=== PATIENT | male | born 1935 | race Caucasian/White ===

== ENCOUNTER → 2016-11-25 14:38 | Outpatient (CLI) | payer MEDICARE, OTHER ==
[2013-03-22 09:12] VITALS: BMI 24.1
[~2016-11-25 14:38] MED LIST: ASPIRIN81 MG PO; CRESTOR20 MG PO; GLUCOPHAGE1000 MG PO; KLOR-CON 1010 MEQ PO; LANTUS INSULIN10 ML SQ; LASIX20 MG PO; NORCO 10/325 TA1 TA1 PO; NORCO 7.5-3251 EACH PO; NORVASC10 MG PO; PLAVIX75 MG PO; ZANTAC150 MG PO
== END | disposition home or self-care (01) ==
LOC: D.US 14:30
DX: N45.1 Epididymitis (principal)

== ENCOUNTER 2018-04-08 21:34 | Observation (INO) | payer MEDICARE, OTHER ==
[~2018-04-08] VITALS: Ht 180.3 cm; Wt 84.1 kg
[2018-04-08] MEDS ORDERED: NAMENDA5 MG PO (21:46)
[2018-04-08 22:11] LABS: BASOPHILS 1.6 % (0-2); EOSINOPHILS 4.9 % (0-7); HEMATOCRIT 36.6 % (42.0-54.0); HEMOGLOBIN 12.7 g/dL (13.5-17.5); IMMATURE GRANULOCYTES 0.3 % (0-5); LYMPHOCYTES 36.1 % (15-50); MCH 29.8 pg (26.0-34.0); MCHC 34.7 g/dL (31.0-37.0); MCV 85.9 fL (80.0-100.0); MEAN PLATELET VOLUME 10.5 fL (7.4-10.4); NEUTROPHILS 49.1 % (40-80); PLATELET COUNT 168 10x3/uL (130-400); RBC 4.26 10x6/uL (4.20-6.10); RDW 13.2 % (11.5-14.5); WBC 7.6 10x3/uL (4.8-10.8)
[2018-04-08 22:27] LABS: ALBUMIN 3.4 g/dL (3.4-5.0); ANION GAP 13.7 mmol/L (8-16); BILIRUBIN - TOTAL 0.33 mg/dL (0.2-1.3); CALCIUM 8.9 mg/dL (8.5-10.1); CARBON DIOXIDE 26.8 mmol/L (21.0-32.0); POTASSIUM - SERUM 4.5 mmol/L (3.5-5.1); PROTEIN - SERUM 7.2 g/dL (6.4-8.2)
[2018-04-08 23:51] VITALS: BP 150/60
[2018-04-09] MEDS ORDERED: TRADJENTA5 MG PO (01:17)
[2018-04-09 01:48] VITALS: BP 156/72; BMI 25.8
[2018-04-09 04:00] VITALS: BP 149/57
[2018-04-09 08:24] VITALS: BP 160/61
[2018-04-09 13:46] VITALS: BP 128/60
[2018-04-09 15:14] VITALS: Ht 180.3 cm; Wt 84.1 kg
== END 2018-04-09 16:30 | disposition home or self-care (01) ==
LOC: D.ER 21:34 → OBSVTIME 23:29 → D.MS 23:29
PROVIDERS: Emergency Medicine
DX: T38.3X1A Poisoning by insulin and oral hypoglycemic [antidiabetic] drugs, accidental (unintentional), initial encounter (principal); I10 Essential (primary) hypertension; G30.9 Alzheimer's disease, unspecified; F02.80 Dementia in other diseases classified elsewhere, unspecified severity, without behavioral disturbance, psychotic disturbance, mood disturbance, and anxiety; E11.9 Type 2 diabetes mellitus without complications

== ENCOUNTER → 2020-01-04 13:08 | Outpatient (CLI) | payer MEDICARE, OTHER ==
[2018-04-09 15:14] VITALS: BMI 25.8
[~2020-01-04 13:08] MED LIST changes: +NAMENDA5 MG PO; +TRADJENTA5 MG PO
== END | disposition home or self-care (01) ==
LOC: D.CT 13:08
PROVIDERS: ATTEND Nurse Practitioner Family
DX: G83.20 Monoplegia of upper limb affecting unspecified side (principal)

== ENCOUNTER → 2020-01-24 08:30 | Outpatient (CLI) | payer MEDICARE, OTHER ==
[2018-04-09 15:14] VITALS: BMI 25.8
== END | disposition home or self-care (01) ==
LOC: D.ECHO 08:30 → D.MRI 10:00
PROVIDERS: ATTEND Psychiatry & Neurology Neurology
DX: I63.311 Cerebral infarction due to thrombosis of right middle cerebral artery (principal)

== ENCOUNTER 2020-12-02 11:43 | Inpatient (IN) | payer MEDICARE, OTHER ==
[2020-12-02] VITALS (7 sets, daily range): BP systolic 164–192; BP diastolic 65–77; BMI 24.4
[~2020-12-02] VITALS: Ht 175.3 cm; Wt 74.8 kg
[~2020-12-02 11:43] MED LIST changes: +BUSPAR5 MG PO; +CELEXA20 MG PO; +COZAAR25 MG PO; +CRESTOR5 MG PO; +DONEPEZIL HCL10 MG PO; +ELIQUIS5 MG PO; +HYDRALAZINE HCL25 MG PO; +INSULIN ASPART
[2020-12-02] MEDS ORDERED: FLOMAX0.4 MG PO (11:54)
[2020-12-02 12:02] LABS: BILIRUBIN NEGATIVE (NEGATIVE); KETONE NEGATIVE (NEGATIVE); NITRITE NEGATIVE (NEGATIVE); UROBILINOGEN NORMAL mg/dL (< 2)
[2020-12-02 12:06] LABS: SQUAMOUS EPITHELIAL 0-5 HPF (0-4); WHITE CELLS - URINE 0-5 HPF (0-1)
[2020-12-02 12:07] LABS: BACTERIA FEW HPF (NONE SEEN)
--- NOTE | 2020-12-02 13:15 | NUR ---
RESTING IN BED WITH EYES CLSOED. AROUSES EASILY WITH VERBAL OR TACTILE STIMULI. S/O AT BS
[2020-12-02 13:25] LABS: BASOPHILS 1.3 % (0-2); EOSINOPHILS 2.9 % (0-7); HEMATOCRIT 31.1 % (42.0-54.0); HEMOGLOBIN 10.4 g/dL (13.5-17.5); IMMATURE GRANULOCYTES 0.3 % (0-5); LYMPHOCYTE ABS# 1.95 10x3/uL (1.32-3.57); LYMPHOCYTES 18.7 % (15-50); MCH 28.3 pg (26.0-34.0); MCHC 33.4 g/dL (31.0-37.0); MCV 84.5 fL (80.0-100.0); MONOCYTES 5.8 % (2-11); PLATELET COUNT 162 10x3/uL (130-400); RBC 3.68 10x6/uL (4.20-6.10); RDW 15.1 % (11.5-14.5); WBC 10.4 10x3/uL (4.8-10.8)
--- NOTE | 2020-12-02 13:25 | NUR ---
DR MCLEAN NOTIFIED OF ELEVATED BP. NEW MED ORDERED/ADMIN
[2020-12-02 13:33] LABS: CALC OSMOLALITY 286 mosm/kg (275-300); CALCIUM 8.5 mg/dL (8.5-10.1); CARBON DIOXIDE 22.1 mmol/L (21.0-32.0); CHLORIDE - SERUM 107 mmol/L (98-107); CREATININE - SERUM 2.7 mg/dL (0.6-1.3); GLUCOSE 99 mg/dL (74-106); INR 1.24 (0.85-1.17); POTASSIUM - SERUM 4.7 mmol/L (3.5-5.1); PROTIME 14.4 SECONDS (11.6-15.0); SODIUM 139 mmol/L (136-145); UREA NITROGEN 38 mg/dL (7-18); eGFR NON AFRICAN AMERICAN 24 mL/min (90-120)
[2020-12-02 13:50] LABS: ALBUMIN 2.6 g/dL (3.4-5.0); ALKALINE PHOSPHATASE 65 U/L (30-120); ALT (SGPT) 22 U/L (10-68); CKMB 1.6 U/L (0.0-3.6); CREATINE KINASE 86 UL (21-232); PROTEIN - SERUM 6.4 g/dL (6.4-8.2)
--- NOTE | 2020-12-02 16:05 | NUR ---
REPORT TO DEEPIKA KEENE
[2020-12-02 16:10] LABS: % SATURATION 20 % (15-55); IRON 45 ug/dl (35-150); TOTAL IRON BIND CAPACITY 224 ug/dl (260-445); UNSAT IRON BIND CAPACITY 179 ug/dl (150-375)
[2020-12-02 16:19] LABS: MAGNESIUM - SERUM 2.1 mg/dL (1.8-2.4)
--- NOTE | 2020-12-02 16:43 | NUR ---
SCDs APPLIED TO BILATERAL EXTREMITIES. NO DISTRESS.
--- NOTE | 2020-12-02 16:45 | NUR ---
ASSISTED PATIENT OOB TO RESTROOM AND BACK. PATIENT HAD LARGE BM. NOW SITTING IN BED CONSUMING PM MEAL. NO DISTRESS. BED ALARM PATENT.
--- NOTE | 2020-12-02 17:06 | NUR ---
FSBS 158. 2 UNITS HUMULIN INSULIN ADMINISTERED PER SLIDING SCALE.
--- NOTE | 2020-12-02 18:06 | NUR ---
CAN ONLY INFUSE ONE ABX AT A TIME, THE TIMING NEEDS TO BE ADJUSTED ON THESE ANTIBIOTICS, PHARMACY CLOSED AND UNABLE TO PLACE A MANUAL REQUEST. ZITHROMAX INFUSING AT THIS TIME.
--- NOTE | 2020-12-02 18:11 | NUR ---
PATIENT CONFUSED, HE HAS PULLED IV OUT OF LEFT AC. NO BLEEDING FROM SITE. WILL ATTEMPT AT PLACING ANOTHER IV. NO FAMILY AT BEDSIDE.
--- NOTE | 2020-12-02 18:12 | NUR ---
20 GAUGE IV CATHETER PULLED FROM LEFT AC AREA BY PATIENT. CATHETER TIP INTACT. NO BLEEDING FROM SITE. 2X2 GAUZE APPLIED AND SECURED WITH BANDAID.
--- NOTE | 2020-12-02 18:36 | NUR ---
20 GAUGE IV PLACED TO LOWER LEFT AC AREA X 1 STICK, GOOD BLOOD RETURN, EASY FLUSH. TAPED, DATED AND SECURED. PATIENT TRYING TO PULL THIS IV OUT i AM FINISHING PLACING TAPE TO SECURE IV. PATIENT NEEDS FREQUENT QUES AND REMINDERS TO NOT PULL IV OUT. PATIENT HAS DEMENTIA. LOOSE COBAN WRAP APPLIED OVER IV SITE TO DEFFER PATIENT FROM PULLING IV SITE OUT. IV ABX INFUSING AT THIS TIME.
--- NOTE | 2020-12-02 19:45 | NUR ---
SPOKE WITH , PASSCODE PROVIDED, UPDATE GIVEN.
[2020-12-03 04:00] VITALS: BP 183/78
[2020-12-03 06:06] LABS: BASOPHILS 1.2 % (0-2); EOSINOPHILS 2.3 % (0-7); HEMATOCRIT 32.1 % (42.0-54.0); HEMOGLOBIN 10.6 g/dL (13.5-17.5); IMMATURE GRANULOCYTES 0.3 % (0-5); LYMPHOCYTE ABS# 1.55 10x3/uL (1.32-3.57); LYMPHOCYTES 16.5 % (15-50); MCH 28.1 pg (26.0-34.0); MCV 85.1 fL (80.0-100.0); MEAN PLATELET VOLUME 10.3 fL (7.4-10.4); MONOCYTES 7.6 % (2-11); NEUTROPHIL ABS# 6.79 10x3/uL (1.78-5.38); NEUTROPHILS 72.1 % (40-80); PLATELET COUNT 178 10x3/uL (130-400); RBC 3.77 10x6/uL (4.20-6.10); RDW 15.3 % (11.5-14.5); WBC 9.4 10x3/uL (4.8-10.8)
[2020-12-03 06:27] LABS: ALBUMIN 2.6 g/dL (3.4-5.0); ANION GAP 14.8 mmol/L (8-16); BILIRUBIN - TOTAL 0.4 mg/dL (0.2-1.3); CALCIUM 8.5 mg/dL (8.5-10.1); CARBON DIOXIDE 23.3 mmol/L (21.0-32.0); CREATININE - SERUM 2.6 mg/dL (0.6-1.3); MAGNESIUM - SERUM 1.9 mg/dL (1.8-2.4); POTASSIUM - SERUM 4.1 mmol/L (3.5-5.1); PROTEIN - SERUM 6.4 g/dL (6.4-8.2)
--- NOTE | 2020-12-03 07:20 | NUR ---
RECIEVE REPORT. ALERT AND ORIENTED TO SELF. WATCHING TV. CONTROLLED AFIB ON TELEMETRY. DENIES ANY NEEDS. CONTINUE PLAN OF CARE AND SAFETY PRECAUTIONS.
[2020-12-03 08:25] VITALS: BP 169/64
[2020-12-03 12:22] VITALS: Ht 175.3 cm; Wt 74.8 kg
[2020-12-03 12:46] VITALS: BP 134/65
[2020-12-03 17:01] VITALS: BP 127/74
[2020-12-03 20:00] VITALS: BP 173/68
--- NOTE | 2020-12-03 20:20 | NUR ---
REPORT RECEIVED, PT LYING IN BED WATCHING TV. NO S/S OF DISTRESS OBSERVED. RR EVEN & UNLABORED ON RA. IV TO L FA PATENT WITH NS AT 75 CC/HR INFUSING. SR 76 ON TELE. BED LOCKED AND LOWERED, CL IN REACH. ASSESSMENT COMPLETE. WILL CONT POC.
[2020-12-04] VITALS: BP 170/80
[2020-12-04 04:00] VITALS: BP 152/80
--- NOTE | 2020-12-04 07:20 | NUR ---
RECIEVE REPORT. RESTING IN BED WITH EYES CLOSED. NO SIGNS OF DISTRESS. CONTROLLED AFIB ON TELEMETRY. CONTINUE PLAN OF CARE AND SAFETY PRECAUTIONS.
[2020-12-04 08:34] VITALS: BP 179/74
[2020-12-04 09:03] LABS: BASOPHILS 0.9 % (0-2); EOSINOPHILS 2.5 % (0-7); HEMATOCRIT 32.3 % (42.0-54.0); HEMOGLOBIN 10.9 g/dL (13.5-17.5); IMMATURE GRANULOCYTES 0.3 % (0-5); LYMPHOCYTE ABS# 1.77 10x3/uL (1.32-3.57); LYMPHOCYTES 14.8 % (15-50); MCH 28.5 pg (26.0-34.0); MCHC 33.7 g/dL (31.0-37.0); MCV 84.6 fL (80.0-100.0); MEAN PLATELET VOLUME 10.1 fL (7.4-10.4); MONOCYTES 5.1 % (2-11); NEUTROPHILS 76.4 % (40-80); PLATELET COUNT 177 10x3/uL (130-400); RBC 3.82 10x6/uL (4.20-6.10); RDW 15.1 % (11.5-14.5)
[2020-12-04 09:09] LABS: WBC 11.9 10x3/uL (4.8-10.8)
[2020-12-04 09:26] LABS: ALBUMIN 2.7 g/dL (3.4-5.0); ANION GAP 15.4 mmol/L (8-16); BILIRUBIN - TOTAL 0.42 mg/dL (0.2-1.3); CALCIUM 8.3 mg/dL (8.5-10.1); CARBON DIOXIDE 21.7 mmol/L (21.0-32.0); CREATININE - SERUM 2.9 mg/dL (0.6-1.3); MAGNESIUM - SERUM 1.7 mg/dL (1.8-2.4); POTASSIUM - SERUM 4.1 mmol/L (3.5-5.1); PROTEIN - SERUM 6.2 g/dL (6.4-8.2)
[2020-12-04 12:57] VITALS: BP 184/83
[2020-12-04 15:47] VITALS: BP 168/70
--- NOTE | 2020-12-04 21:55 | NUR ---
REPORT RECEIVED. PT A&O, RESTING IN BED. NO S/S OF DISTRESS OBSERVED. RR EVEN & UNLABORED ON RA. IV TO L SHOULDER INFUSING NS AT 75 CC/HR. SR 73 ON TELE. BED LOCKED AND LOWERED, CL IN REACH. ASSESSMENT COMPLETE. WILL CONT POC.
[2020-12-04 23:13] VITALS: BP 135/77
[2020-12-05 03:05] VITALS: BP 172/71
[2020-12-05 05:57] VITALS: BP 167/59
[2020-12-05 07:00] LABS: BASOPHILS 1.4 % (0-2); EOSINOPHILS 4.2 % (0-7); HEMATOCRIT 30.5 % (42.0-54.0); IMMATURE GRANULOCYTES 0.3 % (0-5); LYMPHOCYTES 17.5 % (15-50); MCHC 32.8 g/dL (31.0-37.0); MCV 85.4 fL (80.0-100.0); MEAN PLATELET VOLUME 10.5 fL (7.4-10.4); MONOCYTES 6.8 % (2-11); NEUTROPHIL ABS# 6.36 10x3/uL (1.78-5.38); NEUTROPHILS 69.8 % (40-80); PLATELET COUNT 183 10x3/uL (130-400); RBC 3.57 10x6/uL (4.20-6.10); RDW 15.1 % (11.5-14.5); WBC 9.1 10x3/uL (4.8-10.8)
[2020-12-05 07:19] LABS: ALBUMIN 2.5 g/dL (3.4-5.0); ANION GAP 15.7 mmol/L (8-16); BILIRUBIN - TOTAL 0.42 mg/dL (0.2-1.3); CALCIUM 8.4 mg/dL (8.5-10.1); CARBON DIOXIDE 21.3 mmol/L (21.0-32.0); CREATININE - SERUM 2.8 mg/dL (0.6-1.3); MAGNESIUM - SERUM 1.8 mg/dL (1.8-2.4); PROTEIN - SERUM 6.3 g/dL (6.4-8.2)
--- NOTE | 2020-12-05 07:38 | NUR ---
REPORT RECEIVED. PATIENT IS LYING IN BED RESTING WITH EYES CLOSED. NO S/S OF DISTRESS OBSERVED. RR EVEN AND UNLABORED ON ROOM AIR. PIV TO LT SHOULDER, PATENT, INFUSING NS @ 75ML/HR. F/C PATENT, DRAINING YELLOW URINE BY GRAVITY TO LT SIDE OF BED. NO NEEDS EXPRESSED AT THIS TIME. CL IN REACH, BED LOCKED AND LOWERED, ZEKE ALARM ON. WILL CPOC.
[2020-12-05 08:06] VITALS: BP 168/80
[2020-12-05 12:07] VITALS: BP 168/69
--- NOTE | 2020-12-05 12:18 | NUR ---
SON AT BEDSIDE ASSISTING PATIENT WITH EATING LUNCH. NO NEEDS EXPRESSED AT THIS TIME. CL IN REACH, BED LOCKED AND LOWERED. WILL CPOC.
--- NOTE | 2020-12-05 12:24 | MORECARE ---
CASE MANAGEMENT DISCHARGE SUMMARY PATIENT: KATE BAHENA UNIT: [id number] ADM DATE: 12/02/20 AGE: 84 : 36 SEX: M ROOM/BED: D.[facility] [place] AUTHOR: EDITH HOPE PHYSICIAN: REFERRING PHYSICIAN: SNEHA PERSAUD MD DATE OF SERVICE: 12/05/20 Case Management Discharge Planning Summary DCP REVIEW SUMMARY ANTICIPATED D/C DATE: EXPECTED LOS : CASE STATUS: DCP Initiated INITIAL REVIEW: 12/05/2020 INITIAL REVIEWER: Caryl Ledesma FINAL DISCHARGE DISPOSITION: : FINAL REVIEWER: FINAL REVIEW DATE: DCP Focus Questions & Answers DCP Screen QUESTION: ANSWER High Risk Factors: : Polypharmacy (greater than 10 meds) DCP Evaluation QUESTION: ANSWER Patient's ability to cope with chronic illness : d. No chronic illness Would patient like to participate in any Care Coordination programs (if applicable): : Not applicable Mental health screen: : No mental health history DCP Re-evaluation QUESTION: ANSWER Would patient like to participate in any Care Coordination programs (if applicable): : Not applicable PATIENT: KATE BAHENA ENCOUNTER: [id number] MEDICAL RECORD#: [id number] ADMISSION DATE: 12/02/2020 DISCHARGE DATE: ATTENDING MD: CORI PERSAUD : AGE: 84 MARITAL STATUS: M DC PLAN ID: [id number] FACILITY: [facility] PRINTED ON: 12/05/20 12:24 CT All edits/amendments must be made on the electronic document DICTATION DATE: 12/05/201223 FASHION SUPERVISOR: DM 12/05/20 1224 RPT#: [id number] DC DATE: STATUS: ADM IN [facility] [address] [place] [address] END OF REPORT
--- NOTE | 2020-12-05 12:47 | MORECARE ---
CASE MANAGEMENT DISCHARGE SUMMARY PATIENT: KATE BAHENA UNIT: [id number] ADM DATE: 12/02/20 AGE: 84 : 36 SEX: M ROOM/BED: D.2115 AUTHOR: JAYYDOC PHYSICIAN: REFERRING PHYSICIAN: SNEHA PERSAUD MD DATE OF SERVICE: 12/05/20 Case Management Discharge Planning Summary COMMENTS ENTERED DATE: 12/05/20 12:36 CT COMMENT TYPE: Discharge Planning REVIEWER: Caryl Ledesma CM met with patient and son, Faye, is in the room. Patient lives with his and oldest son, Jeff. His PCP is Dr. Smiley. I have also called patient's per patient and son's recommendation to continue discharge planning. His spouse states, if able, she would like her spouse to come home with [facility] (current) home health. She and son agree that it would be best for the patient. States he needs assistance with ambulation, uses a walker, bathing, dressing and medication management. States they have house calls monthly to change catheter. States they also have [facility] home health for nursing and PT. I did discuss rehab and additional DME, but would like to decline at this time and come home with home health. I have notified Yesy in inpatient rehab of the plan. CM will continue to follow and assist with discharge planning/needs. DCP REVIEW SUMMARY ANTICIPATED D/C DATE: EXPECTED LOS : CASE STATUS: DCP Initiated INITIAL REVIEW: 12/05/2020 INITIAL REVIEWER: Caryl Ledesma FINAL DISCHARGE DISPOSITION: : FINAL REVIEWER: FINAL REVIEW DATE: DCP Focus Questions & Answers DCP Screen QUESTION: ANSWER High Risk Factors: : Polypharmacy (greater than 10 meds) DCP Evaluation QUESTION: ANSWER Patient's ability to cope with chronic illness : a. Adequate (0-3 ED visits in 6 mos., adequate financial resources, attends scheduled appts.) Patient gives permission to discuss discharge plans with: (name, relationship and number) : Faye Bahena - [phone] Moni - spouse - [phone] Patient's current cognitive status: : Alert Family / Caregiver's ability to cope with chronic illness: : a. Adequate (ability to meet patient's medical needs, ensures patient attends medical appts.) Patient and/or caregiver agree upon recommended discharge plan? : Yes Physical Status: : Indwelling urinary catheter Physical Status: : Mobility impaired Physical Status: : Partial care dependence Family / Caregiver's ability to cope with chronic illness: : a. Adequate (ability to meet patient's medical needs, ensures patient attends medical appts.) Functional screen assessment: : Unable to manage ADLs without immediate ongoing assistance Does the patient have the ability to pay for or attain post discharge needs / services? : Yes Partial Dependence, assistance required for: : Ambulation / Mobility Partial Dependence, assistance required for: : Bathing Partial Dependence, assistance required for: : Dressing Partial Dependence, assistance required for: : Eating Living Arrangements: : Home with Spouse/Significant Other Is there a likelihood that the patient will require additional services to return to the preadmission environment? : No Equipment needed for post hospitalization: : None Baseline cognitive status: : Alert Baseline cognitive status: : Intermittently confused / memory changes Living arrangements comments: : Lives with spouse and oldest sonJeff Patient with capacity for self-care or can be cared for in same environment as prior to hospitalization? : Yes Results of this evaluation have been discussed with: : Family Results of this evaluation have been discussed with: : Patient Results of this evaluation have been discussed with: : Spouse Preadmission facility can/cannot provide post hospital level of care needs: : Can - at same level of care as preadmission Physical environment modification needed / anticipated for discharge: : No Medication Management: : Patient states the need for assistance with medication administration Medication Management: : Patient states can afford medications Pharmacy name(s): : [facility] [address] Does Patient have transportation to get home and to follow-up medical appointments when discharged from the hospital? : Yes Would patient like to participate in any Care Coordination programs (if applicable): : Not applicable Does the patient have electricity at home? : Yes Does the patient have running water in their house? : Yes Equipment in use: : Cane - Single Leg Equipment in use: : Glucometer Equipment in use: : Shower Chair Equipment in use: : Walker - Rollator Equipment in use: : Walker - Rolling Mental health screen: : Receiving treatment, not under the care of a mental health provider Psychosocial status: : Adult with physical limitations Abuse/Neglect: : None Resources / Services in place: : Home health Contact information for resources in use: : [facility] DCP Re-evaluation QUESTION: ANSWER Would patient like to participate in any Care Coordination programs (if applicable): : Not applicable PATIENT: KATE BAHENA ENCOUNTER: [id number] MEDICAL RECORD#: [id number] ADMISSION DATE: 12/02/2020 DISCHARGE DATE: ATTENDING MD: CORI PERSAUD : AGE: 84 MARITAL STATUS: M DC PLAN ID: [id number] FACILITY: [facility] PRINTED ON: 12/05/20 12:47 CT All edits/amendments must be made on the electronic document DICTATION DATE: 12/05/201246 ELECTRIC SEALING MACHINE OPERATOR: ANASTASIA 12/05/20 124 RPT#: [id number] DC DATE: STATUS: ADM IN [facility] [address] [place] [address] END OF REPORT
--- NOTE | 2020-12-05 13:50 | NUR ---
Nutrition Follow-up: PO intake fluctuating. Needs feeding assistance. ST following. Diet: Cardiac, Carb Consistent, Mech Soft, no straws, feeding assistance PO intake: 55% avg x 3 meals (12/04) No new wt; last wt: 165# (12/03) Labs noted: BUN 41, Cre 2.8, GFR 23, Glu 113, Ca 8.4, Alb 2.5 Meds noted: Miralax, Florajen, Humulin, Pepcid, NS @ 75, electrolyte protocol -Encourage PO intake and honor food preferences within diet restrictions. -Offer Glucerna with meals. -Need new wt. -RD will follow up within 5 days.
[2020-12-05 15:52] VITALS: BP 170/75
--- NOTE | 2020-12-05 16:06 | NUR ---
RECEIVED CALL BACK FROM DR. GHOTRA, INSTRUCTED TO DECREASE CARDIZEM TO 5ML/HR.
--- NOTE | 2020-12-05 20:45 | NUR ---
REPORT RECEIVED. PT A&O, UP IN BED WATCHING TV. NO S/S OF DISTRESS OBSERVED. RR EVEN & UNLABORED ON RA. L SHOULDER IV INFUSING NS AT 75CC/HR. SR 73 ON TELE. BED LOCKED AND LOWERED, CL IN REACH. ASSESSMENT COMPLETE. WILL CONT POC.
[2020-12-05 21:36] VITALS: BP 179/81
[2020-12-06 01:37] VITALS: BP 171/73
[2020-12-06 05:53] VITALS: BP 165/80
[2020-12-06 06:25] LABS: BASOPHILS 0.8 % (0-2); EOSINOPHILS 3.3 % (0-7); HEMATOCRIT 28.8 % (42.0-54.0); HEMOGLOBIN 9.8 g/dL (13.5-17.5); IMMATURE GRANULOCYTES 0.4 % (0-5); LYMPHOCYTE ABS# 1.84 10x3/uL (1.32-3.57); LYMPHOCYTES 17.1 % (15-50); MCH 28.5 pg (26.0-34.0); MCV 83.7 fL (80.0-100.0); MEAN PLATELET VOLUME 10.9 fL (7.4-10.4); MONOCYTES 9.6 % (2-11); NEUTROPHIL ABS# 7.42 10x3/uL (1.78-5.38); NEUTROPHILS 68.8 % (40-80); PLATELET COUNT 195 10x3/uL (130-400); RBC 3.44 10x6/uL (4.20-6.10); WBC 10.8 10x3/uL (4.8-10.8)
[2020-12-06 06:43] LABS: ALBUMIN 2.4 g/dL (3.4-5.0); ANION GAP 17.8 mmol/L (8-16); BILIRUBIN - TOTAL 0.52 mg/dL (0.2-1.3); CALCIUM 8.1 mg/dL (8.5-10.1); CARBON DIOXIDE 19.2 mmol/L (21.0-32.0); CREATININE - SERUM 2.8 mg/dL (0.6-1.3); MAGNESIUM - SERUM 1.7 mg/dL (1.8-2.4); PROTEIN - SERUM 5.7 g/dL (6.4-8.2)
[2020-12-06 08:00] VITALS: BP 196/82
[2020-12-06] MEDS ORDERED: MIRALAX17 GM PO (11:08)
[2020-12-06] MEDS ORDERED: FLORAJEN DIGES1 EACH PO (11:08)
[2020-12-06] MEDS ORDERED: VIBRAMYCIN 100100 MG PO (11:09)
[2020-12-06] MEDS ORDERED: AZITHROMYCIN500 MG PO (11:10)
--- NOTE | 2020-12-06 12:48 | MORECARE ---
CASE MANAGEMENT DISCHARGE SUMMARY PATIENT: KATE BAHENA UNIT: [id number] ADM DATE: 12/02/20 AGE: 84 : 36 SEX: M ROOM/BED: D.8325 AUTHOR: JAYY,EDITH PHYSICIAN: REFERRING PHYSICIAN: SNEHA PERSAUD MD DATE OF SERVICE: 12/06/20 Case Management Discharge Planning Summary COMMENTS ENTERED DATE: 12/06/20 12:36 CT COMMENT TYPE: Discharge Planning REVIEWER: Caryl Ledesma DC order received. I called [facility] and spoke with Joann, they will resume his home health. Joann states they will call family prior to coming out. Home today with [employer], clinical faxed. ENTERED DATE: 12/05/20 12:36 CT COMMENT TYPE: Discharge Planning REVIEWER: Caryl Ledesma CM met with patient and son, Faye, is in the room. Patient lives with his and oldest son, Jeff. His PCP is Dr. Smiley. I have also called patient's per patient and son's recommendation to continue discharge planning. His spouse states, if able, she would like her spouse to come home with [facility] (current) home health. She and son agree that it would be best for the patient. States he needs assistance with ambulation, uses a walker, bathing, dressing and medication management. States they have house calls monthly to change catheter. States they also have [facility] for nursing and PT. I did discuss rehab and additional DME, but would like to decline at this time and come home with home health. I have notified Yesy in inpatient rehab of the plan. CM will continue to follow and assist with discharge planning/needs. DCP REVIEW SUMMARY ANTICIPATED D/C DATE: EXPECTED LOS : CASE STATUS: DCP Initiated INITIAL REVIEW: 12/05/2020 INITIAL REVIEWER: Caryl Ledesma FINAL DISCHARGE DISPOSITION: : FINAL REVIEWER: FINAL REVIEW DATE: DCP Focus Questions & Answers DCP Screen QUESTION: ANSWER High Risk Factors: : Polypharmacy (greater than 10 meds) DCP Evaluation QUESTION: ANSWER Patient and/or caregiver agree upon recommended discharge plan? : Yes Family / Caregiver's ability to cope with chronic illness: : a. Adequate (ability to meet patient's medical needs, ensures patient attends medical appts.) Patient's current cognitive status: : Alert Patient gives permission to discuss discharge plans with: (name, relationship and number) : Faye Bahena - [phone] Moni - spouse - [phone] Patient's ability to cope with chronic illness : a. Adequate (0-3 ED visits in 6 mos., adequate financial resources, attends scheduled appts.) Does the patient have the ability to pay for or attain post discharge needs / services? : Yes Functional screen assessment: : Unable to manage ADLs without immediate ongoing assistance Family / Caregiver's ability to cope with chronic illness: : a. Adequate (ability to meet patient's medical needs, ensures patient attends medical appts.) Physical Status: : Partial care dependence Physical Status: : Mobility impaired Physical Status: : Indwelling urinary catheter Equipment needed for post hospitalization: : None Is there a likelihood that the patient will require additional services to return to the preadmission environment? : No Living Arrangements: : Home with Spouse/Significant Other Partial Dependence, assistance required for: : Eating Partial Dependence, assistance required for: : Dressing Partial Dependence, assistance required for: : Bathing Partial Dependence, assistance required for: : Ambulation / Mobility Results of this evaluation have been discussed with: : Spouse Results of this evaluation have been discussed with: : Patient Results of this evaluation have been discussed with: : Family Patient with capacity for self-care or can be cared for in same environment as prior to hospitalization? : Yes Living arrangements comments: : Lives with spouse and oldest sonJeff Baseline cognitive status: : Intermittently confused / memory changes Baseline cognitive status: : Alert Physical environment modification needed / anticipated for discharge: : No Preadmission facility can/cannot provide post hospital level of care needs: : Can - at same level of care as preadmission Medication Management: : Patient states can afford medications Medication Management: : Patient states the need for assistance with medication administration Pharmacy name(s): : [facility] [address] Does Patient have transportation to get home and to follow-up medical appointments when discharged from the hospital? : Yes Would patient like to participate in any Care Coordination programs (if applicable): : Not applicable Does the patient have electricity at home? : Yes Does the patient have running water in their house? : Yes Equipment in use: : Walker - Rolling Equipment in use: : Walker - Rollator Equipment in use: : Shower Chair Equipment in use: : Glucometer Equipment in use: : Cane - Single Leg Mental health screen: : Receiving treatment, not under the care of a mental health provider Psychosocial status: : Adult with physical limitations Abuse/Neglect: : None Resources / Services in place: : Home health Contact information for resources in use: : [employer] DCP Re-evaluation QUESTION: ANSWER Would patient like to participate in any Care Coordination programs (if applicable): : Not applicable PATIENT: KATE BAHENA ENCOUNTER: [id number] MEDICAL RECORD#: [id number] ADMISSION DATE: 12/02/2020 DISCHARGE DATE: ATTENDING MD: CORI PERSAUD : AGE: 84 MARITAL STATUS: M DC PLAN ID: [id number] FACILITY: [facility] PRINTED ON: 12/06/20 12:48 CT All edits/amendments must be made on the electronic document DICTATION DATE: 12/06/201247 FISCAL MANAGER: ANASTASIA 12/06/20 1248 RPT#: [id number] DC DATE: STATUS: ADM IN [facility] [address] [place] [address] END OF REPORT
--- NOTE | 2020-12-06 16:01 | NUR ---
IV AND TELEMETRY DCD. DC PLANS GIVEN TO . UNDERSTANDING VOICED. ESCORTED TO CAR BY W/C.
--- NOTE | 2020-12-09 17:28 | MORECARE ---
CASE MANAGEMENT DISCHARGE SUMMARY PATIENT: KATE BAHENA UNIT: [id number] ADM DATE: 12/02/20 AGE: 84 : 36 SEX: M ROOM/BED: D.9945 AUTHOR: JAYY,EDITH PHYSICIAN: REFERRING PHYSICIAN: SNEHA PERSAUD MD DATE OF SERVICE: 12/09/20 Case Management Discharge Planning Summary COMMENTS ENTERED DATE: 12/06/20 12:36 CT COMMENT TYPE: Discharge Planning REVIEWER: Caryl Ledesma DC order received. I called [facility] and spoke with Joann, they will resume his home health. Joann states they will call family prior to coming out. Home today with [employer], clinical faxed. ENTERED DATE: 12/05/20 12:36 CT COMMENT TYPE: Discharge Planning REVIEWER: Caryl Ledesma CM met with patient and son, Faye, is in the room. Patient lives with his and oldest son, Jeff. His PCP is Dr. Smiley. I have also called patient's per patient and son's recommendation to continue discharge planning. His spouse states, if able, she would like her spouse to come home with [facility] (current) home health. She and son agree that it would be best for the patient. States he needs assistance with ambulation, uses a walker, bathing, dressing and medication management. States they have house calls monthly to change catheter. States they also have [facility] for nursing and PT. I did discuss rehab and additional DME, but would like to decline at this time and come home with home health. I have notified Yesy in inpatient rehab of the plan. CM will continue to follow and assist with discharge planning/needs. DCP REVIEW SUMMARY ANTICIPATED D/C DATE: EXPECTED LOS : CASE STATUS: DCP Initiated INITIAL REVIEW: 12/05/2020 INITIAL REVIEWER: Caryl Ledesma FINAL DISCHARGE DISPOSITION: : FINAL REVIEWER: FINAL REVIEW DATE: DCP Focus Questions & Answers DCP Screen QUESTION: ANSWER High Risk Factors: : Polypharmacy (greater than 10 meds) DCP Evaluation QUESTION: ANSWER Patient's ability to cope with chronic illness : a. Adequate (0-3 ED visits in 6 mos., adequate financial resources, attends scheduled appts.) Patient gives permission to discuss discharge plans with: (name, relationship and number) : Faye Bahena - [phone] Moni - spouse - [phone] Patient's current cognitive status: : Alert Family / Caregiver's ability to cope with chronic illness: : a. Adequate (ability to meet patient's medical needs, ensures patient attends medical appts.) Patient and/or caregiver agree upon recommended discharge plan? : Yes Physical Status: : Indwelling urinary catheter Physical Status: : Mobility impaired Physical Status: : Partial care dependence Family / Caregiver's ability to cope with chronic illness: : a. Adequate (ability to meet patient's medical needs, ensures patient attends medical appts.) Functional screen assessment: : Unable to manage ADLs without immediate ongoing assistance Does the patient have the ability to pay for or attain post discharge needs / services? : Yes Partial Dependence, assistance required for: : Ambulation / Mobility Partial Dependence, assistance required for: : Bathing Partial Dependence, assistance required for: : Dressing Partial Dependence, assistance required for: : Eating Living Arrangements: : Home with Spouse/Significant Other Is there a likelihood that the patient will require additional services to return to the preadmission environment? : No Equipment needed for post hospitalization: : None Baseline cognitive status: : Alert Baseline cognitive status: : Intermittently confused / memory changes Living arrangements comments: : Lives with spouse and oldest son, Jeff Patient with capacity for self-care or can be cared for in same environment as prior to hospitalization? : Yes Results of this evaluation have been discussed with: : Family Results of this evaluation have been discussed with: : Patient Results of this evaluation have been discussed with: : Spouse Preadmission facility can/cannot provide post hospital level of care needs: : Can - at same level of care as preadmission Physical environment modification needed / anticipated for discharge: : No Medication Management: : Patient states the need for assistance with medication administration Medication Management: : Patient states can afford medications Pharmacy name(s): : [facility] [address] Does Patient have transportation to get home and to follow-up medical appointments when discharged from the hospital? : Yes Would patient like to participate in any Care Coordination programs (if applicable): : Not applicable Does the patient have electricity at home? : Yes Does the patient have running water in their house? : Yes Equipment in use: : Cane - Single Leg Equipment in use: : Glucometer Equipment in use: : Shower Chair Equipment in use: : Walker - Rollator Equipment in use: : Walker - Rolling Mental health screen: : Receiving treatment, not under the care of a mental health provider Psychosocial status: : Adult with physical limitations Abuse/Neglect: : None Resources / Services in place: : Home health Contact information for resources in use: : [facility] DCP Re-evaluation QUESTION: ANSWER Would patient like to participate in any Care Coordination programs (if applicable): : Not applicable PATIENT: KATE BAHENA ENCOUNTER: [id number] MEDICAL RECORD#: [id number] ADMISSION DATE: 12/02/2020 DISCHARGE DATE: 12/06/2020 ATTENDING MD: CORI PERSAUD : AGE: 84 MARITAL STATUS: M DC PLAN ID: [id number] FACILITY: [facility] PRINTED ON: 12/09/20 17:28 CT All edits/amendments must be made on the electronic document DICTATION DATE: 12/09/201727 SPACE OPERATIONS OFFICER: ANASTASIA 12/09/201727 RPT#: [id number] DC DATE:12/06/20 STATUS: DIS IN [facility] [address] [place] [address] END OF REPORT
--- NOTE | 2020-12-10 11:02 | MORECARE ---
CASE MANAGEMENT DISCHARGE SUMMARY PATIENT: KATE BAHENA UNIT: [id number] ADM DATE: 12/02/20 AGE: 84 : 36 SEX: M ROOM/BED: D.8145 AUTHOR: JAYY,EDITH PHYSICIAN: REFERRING PHYSICIAN: SNEHA PERSAUD MD DATE OF SERVICE: 12/10/20 Case Management Discharge Planning Summary COMMENTS ENTERED DATE: 12/06/20 12:36 CT COMMENT TYPE: Discharge Planning REVIEWER: Caryl Ledesma DC order received. I called [facility] and spoke with Joann, they will resume his home health. Joann states they will call family prior to coming out. Home today with [facility], clinical faxed. ENTERED DATE: 12/05/20 12:36 CT COMMENT TYPE: Discharge Planning REVIEWER: Caryl Ledesma CM met with patient and son, Faye, is in the room. Patient lives with his and oldest son, Jeff. His PCP is Dr. Smiley. I have also called patient's per patient and son's recommendation to continue discharge planning. His spouse states, if able, she would like her spouse to come home with [facility] (current) home health. She and son agree that it would be best for the patient. States he needs assistance with ambulation, uses a walker, bathing, dressing and medication management. States they have house calls monthly to change catheter. States they also have [facility] for [facility] and PT. I did discuss rehab and additional DME, but would like to decline at this time and come home with home health. I have notified Yesy in inpatient rehab of the plan. CM will continue to follow and assist with discharge planning/needs. DCP REVIEW SUMMARY ANTICIPATED D/C DATE: EXPECTED LOS : CASE STATUS: DCP Initiated INITIAL REVIEW: 12/05/2020 INITIAL REVIEWER: Caryl Ledesma FINAL DISCHARGE DISPOSITION: : FINAL REVIEWER: FINAL REVIEW DATE: DCP Focus Questions & Answers DCP Screen QUESTION: ANSWER High Risk Factors: : Polypharmacy (greater than 10 meds) DCP Evaluation QUESTION: ANSWER Patient and/or caregiver agree upon recommended discharge plan? : Yes Family / Caregiver's ability to cope with chronic illness: : a. Adequate (ability to meet patient's medical needs, ensures patient attends medical appts.) Patient's current cognitive status: : Alert Patient gives permission to discuss discharge plans with: (name, relationship and number) : Faye Bahena - [phone] Moni - spouse - [phone] Patient's ability to cope with chronic illness : a. Adequate (0-3 ED visits in 6 mos., adequate financial resources, attends scheduled appts.) Does the patient have the ability to pay for or attain post discharge needs / services? : Yes Functional screen assessment: : Unable to manage ADLs without immediate ongoing assistance Family / Caregiver's ability to cope with chronic illness: : a. Adequate (ability to meet patient's medical needs, ensures patient attends medical appts.) Physical Status: : Partial care dependence Physical Status: : Mobility impaired Physical Status: : Indwelling urinary catheter Equipment needed for post hospitalization: : None Is there a likelihood that the patient will require additional services to return to the preadmission environment? : No Living Arrangements: : Home with Spouse/Significant Other Partial Dependence, assistance required for: : Eating Partial Dependence, assistance required for: : Dressing Partial Dependence, assistance required for: : Bathing Partial Dependence, assistance required for: : Ambulation / Mobility Results of this evaluation have been discussed with: : Spouse Results of this evaluation have been discussed with: : Patient Results of this evaluation have been discussed with: : Family Patient with capacity for self-care or can be cared for in same environment as prior to hospitalization? : Yes Living arrangements comments: : Lives with spouse and oldest sonJeff Baseline cognitive status: : Intermittently confused / memory changes Baseline cognitive status: : Alert Physical environment modification needed / anticipated for discharge: : No Preadmission facility can/cannot provide post hospital level of care needs: : Can - at same level of care as preadmission Medication Management: : Patient states can afford medications Medication Management: : Patient states the need for assistance with medication administration Pharmacy name(s): : [facility] [address] Does Patient have transportation to get home and to follow-up medical appointments when discharged from the hospital? : Yes Would patient like to participate in any Care Coordination programs (if applicable): : Not applicable Does the patient have electricity at home? : Yes Does the patient have running water in their house? : Yes Equipment in use: : Walker - Rolling Equipment in use: : Walker - Rollator Equipment in use: : Shower Chair Equipment in use: : Glucometer Equipment in use: : Cane - Single Leg Mental health screen: : Receiving treatment, not under the care of a mental health provider Psychosocial status: : Adult with physical limitations Abuse/Neglect: : None Resources / Services in place: : Home health Contact information for resources in use: : [employer] DCP Re-evaluation QUESTION: ANSWER Would patient like to participate in any Care Coordination programs (if applicable): : Not applicable PATIENT: KATE BAHENA ENCOUNTER: [id number] MEDICAL RECORD#: [id number] ADMISSION DATE: 12/02/2020 DISCHARGE DATE: 12/06/2020 ATTENDING MD: CORI PERSAUD : AGE: 84 MARITAL STATUS: M DC PLAN ID: [id number] FACILITY: [facility] PRINTED ON: 12/10/20 11:02 CT All edits/amendments must be made on the electronic document DICTATION DATE: 12/10/20 110 ELECTRICIAN SHIP: ANASTASIA 12/10/20 110 RPT#: [id number] DC DATE:12/06/20 STATUS: DIS IN [facility] [address] [place] [address] END OF REPORT
== END 2020-12-06 16:02 | disposition home health service (06) | DRG 195 ==
LOC: D.ER 11:43 → D.M2 14:21
PROVIDERS: Family Medicine; ADMIT Family Medicine; ATTEND Family Medicine
DX: J18.9 Pneumonia, unspecified organism (principal); I12.9 Hypertensive chronic kidney disease with stage 1 through stage 4 chronic kidney disease, or unspecified chronic kidney disease; E11.22 Type 2 diabetes mellitus with diabetic chronic kidney disease; N18.9 Chronic kidney disease, unspecified; D63.1 Anemia in chronic kidney disease; E11.65 Type 2 diabetes mellitus with hyperglycemia; I48.91 Unspecified atrial fibrillation; E11.51 Type 2 diabetes mellitus with diabetic peripheral angiopathy without gangrene; G30.9 Alzheimer's disease, unspecified; F02.80 Dementia in other diseases classified elsewhere, unspecified severity, without behavioral disturbance, psychotic disturbance, mood disturbance, and anxiety; H54.61 Unqualified visual loss, right eye, normal vision left eye; F41.8 Other specified anxiety disorders; Z86.73 Personal history of transient ischemic attack (TIA), and cerebral infarction without residual deficits; N28.9 Disorder of kidney and ureter, unspecified

== ENCOUNTER 2021-01-22 10:41 | Inpatient (IN) | payer MEDICARE, OTHER ==
[2021-01-22] VITALS (9 sets, daily range): BP systolic 117–139; BP diastolic 48–65; BMI 25.1
[~2021-01-22] VITALS: Ht 175.3 cm; Wt 77.1 kg
[~2021-01-22 10:41] MED LIST changes: +AZITHROMYCIN500 MG PO; +FLOMAX0.4 MG PO; +FLORAJEN DIGES1 EACH PO; +MIRALAX17 GM PO; +VIBRAMYCIN 100100 MG PO
[2021-01-22 11:28] LABS: BASOPHILS 0.2 % (0-2); EOSINOPHILS 1.4 % (0-7); HEMATOCRIT 21.6 % (42.0-54.0); LYMPHOCYTES 10.4 % (15-50); MCHC 33.1 g/dL (31.0-37.0); MCV 84.8 fL (80.0-100.0); MEAN PLATELET VOLUME 7.8 fL (7.4-10.4); MONOCYTES 16.8 % (2-11); NEUTROPHILS 71.2 % (40-80); RBC 2.55 10x6/uL (4.20-6.10); RDW 16.5 % (11.5-14.5); WBC 7.1 10x3/uL (4.8-10.8)
[2021-01-22 11:33] LABS: CALCIUM 8.1 mg/dL (8.5-10.1); CARBON DIOXIDE 30.4 mmol/L (21.0-32.0); CREATININE - SERUM 5.3 mg/dL (0.6-1.3); POTASSIUM - SERUM 3.4 mmol/L (3.5-5.1)
[2021-01-22 11:34] LABS: APTT 44.8 SECONDS (22.8-39.4); INR 1.63 (0.85-1.17); PROTIME 17.9 SECONDS (11.6-15.0)
[2021-01-22 11:41] LABS: PLATELET COUNT 286 10x3/uL (130-400)
[2021-01-22 11:42] LABS: HEMOGLOBIN 7.1 g/dL (13.5-17.5)
--- NOTE | 2021-01-22 11:45 | NUR ---
ARRIVED VIA [facility] ON STRETCHER FROM [facility].
[2021-01-22 11:54] LABS: BILIRUBIN - TOTAL 0.27 mg/dL (0.2-1.3); PROTEIN - SERUM 5.9 g/dL (6.4-8.2)
[2021-01-22 12:00] LABS: TROPONIN-I 0.112 ng/mL (0.000-0.060)
--- NOTE | 2021-01-22 13:00 | NUR ---
DR. PERSAUD HERE TO SEE PT. DISCUSSED CODE STATUS WITH .
[2021-01-22 14:42] LABS: AMORPHOUS SEDIMENT RARE LPF (<FEW); BACTERIA FEW HPF (<MOD); BILIRUBIN NEGATIVE (NEGATIVE); KETONE TRACE mg/dL (< 1+); NITRITE NEGATIVE (NEGATIVE); SQUAMOUS EPITHELIAL 1 HPF (0-4); UROBILINOGEN NORMAL mg/dL (< 2); WHITE CELLS - URINE 13 HPF (0-1)
[2021-01-22 14:43] LABS: CKMB 1.8 U/L (0.0-3.6); CREATINE KINASE 73 UL (21-232)
[2021-01-22 14:44] LABS: TROPONIN-I 0.114 ng/mL (0.000-0.060)
--- NOTE | 2021-01-22 16:00 | NUR ---
B. JOSIAS ANIMAL HUSBANDRY WORKER HERE TO SEE PT
--- NOTE | 2021-01-22 16:56 | NUR ---
REPORT CALLED TO ROGER POE ON M2 PT IS GOING TO ROOM [id number]
--- NOTE | 2021-01-22 19:43 | NUR ---
IN BED RESTING WITH EYES CLOSED, AROUSES TO VERBAL STIMULI. IV TO LEFT AC WITH PRBCs INFUSING. VITALS STABLE, NO S/S ADVERSE REACTION NOTED. BRUCE DRAINING TO GRAVITY. BED LOW, CL IN REACH.
--- NOTE | 2021-01-22 22:05 | NUR ---
SECOND UNIT OF PRBCs INFUSING TO LEFT AC, VITALS STABLE. SON AT BED SIDE.
[2021-01-23] VITALS: BP 120/44
--- NOTE | 2021-01-23 00:38 | NUR ---
IN BED RESTING WITH EYES CLOSED, NO S/S DISTRESS NOTED. BED LOW, CL IN REACH.
[2021-01-23 01:58] LABS: CKMB 2.2 U/L (0.0-3.6); CREATINE KINASE 90 UL (21-232)
[2021-01-23 01:59] LABS: TROPONIN-I 0.098 ng/mL (0.000-0.060)
--- NOTE | 2021-01-23 02:05 | NUR ---
SECOND UNIT OF BLOOD FINISHED INFUSING, LINE FLUSHING WITH NS, VITALS STABLE. NO S/S ADVERSE REACTION NOTED.
[2021-01-23 04:00] VITALS: BP 144/67
[2021-01-23 07:03] LABS: BASOPHILS 2.8 % (0-2); LYMPHOCYTES 16.9 % (15-50); MCH 29.1 pg (26.0-34.0); MCHC 34.3 g/dL (31.0-37.0); MCV 84.7 fL (80.0-100.0); MEAN PLATELET VOLUME 8.4 fL (7.4-10.4); MONOCYTES 8.7 % (2-11); NEUTROPHILS 66.6 % (40-80); PLATELET COUNT 245 10x3/uL (130-400); RDW 15.4 % (11.5-14.5); WBC 7.2 10x3/uL (4.8-10.8)
[2021-01-23 07:23] LABS: ALBUMIN 1.9 g/dL (3.4-5.0); ALKALINE PHOSPHATASE 65 U/L (30-120); ALT (SGPT) 21 U/L (10-68); BILIRUBIN - TOTAL 0.46 mg/dL (0.2-1.3); CALC OSMOLALITY 298 mosm/kg (275-300); CALCIUM 7.9 mg/dL (8.5-10.1); CARBON DIOXIDE 26.6 mmol/L (21.0-32.0); CHLORIDE - SERUM 100 mmol/L (98-107); CKMB 1.8 U/L (0.0-3.6); CREATINE KINASE 74 UL (21-232); CREATININE - SERUM 5.8 mg/dL (0.6-1.3); GLUCOSE 82 mg/dL (74-106); MAGNESIUM - SERUM 2.4 mg/dL (1.8-2.4); POTASSIUM - SERUM 3.5 mmol/L (3.5-5.1); PROTEIN - SERUM 5.6 g/dL (6.4-8.2); SODIUM 138 mmol/L (136-145); UREA NITROGEN 81 mg/dL (7-18); eGFR NON AFRICAN AMERICAN 10 mL/min (90-120)
[2021-01-23 07:31] LABS: TROPONIN-I 0.094 ng/mL (0.000-0.060)
[2021-01-23 07:42] LABS: HEMATOCRIT 28.6 % (42.0-54.0); HEMOGLOBIN 9.8 g/dL (13.5-17.5); RBC 3.37 10x6/uL (4.20-6.10)
[2021-01-23 08:42] VITALS: BP 117/56
[2021-01-23 13:02] LABS: CREATINE KINASE 65 UL (21-232)
[2021-01-23 13:04] LABS: TROPONIN-I 0.089 ng/mL (0.000-0.060)
[2021-01-23 18:09] VITALS: BP 122/50
[2021-01-24] VITALS (8 sets, daily range): BP systolic 129–145; BP diastolic 54–64
[2021-01-24 06:25] LABS: BASOPHILS 2.2 % (0-2); EOSINOPHILS 4.2 % (0-7); HEMOGLOBIN 9.8 g/dL (13.5-17.5); LYMPHOCYTES 17.1 % (15-50); MCH 28.4 pg (26.0-34.0); MCHC 33.6 g/dL (31.0-37.0); MCV 84.6 fL (80.0-100.0); MEAN PLATELET VOLUME 8.4 fL (7.4-10.4); NEUTROPHILS 67.5 % (40-80); PLATELET COUNT 254 10x3/uL (130-400); RBC 3.43 10x6/uL (4.20-6.10); RDW 15.4 % (11.5-14.5); WBC 7.8 10x3/uL (4.8-10.8)
[2021-01-24 06:42] LABS: ALBUMIN 1.9 g/dL (3.4-5.0); ANION GAP 12.9 mmol/L (8-16); BILIRUBIN - TOTAL 0.35 mg/dL (0.2-1.3); CALCIUM 7.8 mg/dL (8.5-10.1); CARBON DIOXIDE 27.5 mmol/L (21.0-32.0); CREATININE - SERUM 6.1 mg/dL (0.6-1.3); MAGNESIUM - SERUM 2.3 mg/dL (1.8-2.4); POTASSIUM - SERUM 3.4 mmol/L (3.5-5.1); PROTEIN - SERUM 5.8 g/dL (6.4-8.2)
[2021-01-25 01:51] VITALS: BP 143/56
[2021-01-25 06:03] LABS: BASOPHILS 1.9 % (0-2); EOSINOPHILS 3.9 % (0-7); HEMATOCRIT 30.6 % (42.0-54.0); HEMOGLOBIN 10.4 g/dL (13.5-17.5); LYMPHOCYTES 14.1 % (15-50); MCH 28.9 pg (26.0-34.0); MCHC 34.1 g/dL (31.0-37.0); MCV 84.6 fL (80.0-100.0); MEAN PLATELET VOLUME 8.1 fL (7.4-10.4); MONOCYTES 8.3 % (2-11); NEUTROPHILS 71.8 % (40-80); PLATELET COUNT 294 10x3/uL (130-400); RBC 3.62 10x6/uL (4.20-6.10)
[2021-01-25 06:06] LABS: ALBUMIN 2.1 g/dL (3.4-5.0); ANION GAP 15.5 mmol/L (8-16); BILIRUBIN - TOTAL 0.38 mg/dL (0.2-1.3); CALCIUM 8.3 mg/dL (8.5-10.1); CREATININE - SERUM 6.4 mg/dL (0.6-1.3); MAGNESIUM - SERUM 2.3 mg/dL (1.8-2.4); POTASSIUM - SERUM 3.5 mmol/L (3.5-5.1); PROTEIN - SERUM 6.2 g/dL (6.4-8.2)
[2021-01-25 08:00] VITALS: BP 154/53
[2021-01-25 09:01] VITALS: BP 154/53
[2021-01-25 12:00] VITALS: BP 128/58
[2021-01-25 12:55] VITALS: Ht 175.3 cm; Wt 77.1 kg
[2021-01-25 16:00] VITALS: BP 124/58
[2021-01-25 20:23] VITALS: BP 145/62
[2021-01-26 00:32] VITALS: BP 131/52
[2021-01-26 04:53] VITALS: BP 139/55
[2021-01-26 06:11] LABS: BASOPHILS 1.9 % (0-2); EOSINOPHILS 5.9 % (0-7); HEMATOCRIT 27.8 % (42.0-54.0); HEMOGLOBIN 9.3 g/dL (13.5-17.5); LYMPHOCYTES 16.6 % (15-50); MCH 28.5 pg (26.0-34.0); MCHC 33.4 g/dL (31.0-37.0); MCV 85.3 fL (80.0-100.0); MEAN PLATELET VOLUME 8.4 fL (7.4-10.4); MONOCYTES 8.8 % (2-11); NEUTROPHILS 66.8 % (40-80); PLATELET COUNT 239 10x3/uL (130-400); RBC 3.25 10x6/uL (4.20-6.10); RDW 15.6 % (11.5-14.5); WBC 6.8 10x3/uL (4.8-10.8)
[2021-01-26 06:42] LABS: ALBUMIN 1.8 g/dL (3.4-5.0); ANION GAP 13.1 mmol/L (8-16); BILIRUBIN - TOTAL 0.33 mg/dL (0.2-1.3); CALCIUM 7.9 mg/dL (8.5-10.1); CARBON DIOXIDE 26.6 mmol/L (21.0-32.0); CREATININE - SERUM 6.6 mg/dL (0.6-1.3); MAGNESIUM - SERUM 2.4 mg/dL (1.8-2.4); POTASSIUM - SERUM 3.7 mmol/L (3.5-5.1); PROTEIN - SERUM 5.5 g/dL (6.4-8.2)
[2021-01-26 08:18] VITALS: BP 136/57
[2021-01-26 09:24] LABS: CREATININE - URINE 131.9 mg/dL (30-125)
[2021-01-26 09:27] LABS: PRO/CRE RATIO URINE 2.9 mg/g; PROTEIN - URINE 386.6 mg/dL (0.0-11.9)
[2021-01-26 10:57] VITALS: BP 129/52
[2021-01-26 15:25] VITALS: BP 131/70
--- NOTE | 2021-01-26 16:59 | MORECARE ---
CASE MANAGEMENT DISCHARGE SUMMARY PATIENT: KATE BAHENA UNIT: [id number] ADM DATE: 01/22/21 AGE: 85 : 36 SEX: M ROOM/BED: D.[facility] AUTHOR: EDITH HOPE PHYSICIAN: REFERRING PHYSICIAN: SNEHA PERSAUD MD DATE OF SERVICE: 01/26/21 Case Management Discharge Planning Summary DCP REVIEW SUMMARY ANTICIPATED D/C DATE: EXPECTED LOS : CASE STATUS: DCP Initiated INITIAL REVIEW: 01/22/2021 INITIAL REVIEWER: Iftikhar Dave FINAL DISCHARGE DISPOSITION: : FINAL REVIEWER: FINAL REVIEW DATE: DCP Focus Questions & Answers QUESTION: ANSWER : PATIENT: KATE BAHENA ENCOUNTER: [id number] MEDICAL RECORD#: [id number] ADMISSION DATE: 01/22/2021 DISCHARGE DATE: ATTENDING MD: CORI PERSAUD : AGE: 85 MARITAL STATUS: M DC PLAN ID: [id number] FACILITY: [facility] PRINTED ON: 01/26/21 16:59 CT All edits/amendments must be made on the electronic document DICTATION DATE: 01/26/211658 MAST MAKER: DM 01/26/211658 RPT#: [id number] DC DATE: STATUS: ADM IN [facility] [address] [place] [address] END OF REPORT
--- NOTE | 2021-01-26 17:20 | MORECARE ---
CASE MANAGEMENT DISCHARGE SUMMARY PATIENT: KATE NANCE UNIT: [id number] ADM DATE: 01/22/21 AGE: 85 : 36 SEX: M ROOM/BED: D.2126 AUTHOR: JAYY,DOC PHYSICIAN: REFERRING PHYSICIAN: SNEHA PERSAUD MD DATE OF SERVICE: 01/26/21 Case Management Discharge Planning Summary COMMENTS ENTERED DATE: 01/26/21 17:07 CT COMMENT TYPE: Discharge Planning REVIEWER: Iftikhar Dave Received Hospice Consult. Spoke with patient's spouse, Moni Nance. Moni would like to speak to [facility] inpatient hospice nurse regarding types of care and what to expect from hospice. Clinical Documents faxed to [facility]. Spoke with Saniya of Hospice. Referral placed and contact information of patient's spouse given to Hospice nurse. JAMES for [facility] telephonically signed for patient's spouse, Moni Nance at 1642 26 JANUARY 2021. CM will continue to follow and will assist as needed with dc plans/needs DCP REVIEW SUMMARY ANTICIPATED D/C DATE: EXPECTED LOS : CASE STATUS: DCP Initiated INITIAL REVIEW: 01/22/2021 INITIAL REVIEWER: Iftikhar Dave FINAL DISCHARGE DISPOSITION: : FINAL REVIEWER: FINAL REVIEW DATE: DCP Focus Questions & Answers QUESTION: ANSWER : PATIENT: KATE NANCE ENCOUNTER: [id number] MEDICAL RECORD#: [id number] ADMISSION DATE: 01/22/2021 DISCHARGE DATE: ATTENDING MD: CORI PERSAUD : AGE: 85 MARITAL STATUS: M DC PLAN ID: [id number] FACILITY: [facility] PRINTED ON: 01/26/21 17:20 CT All edits/amendments must be made on the electronic document DICTATION DATE: 01/26/211719 CLEANER WALL: ANASTASIA 01/26/211719 RPT#: [id number] DC DATE: STATUS: ADM IN [facility] [address] [place] [address] END OF REPORT
[2021-01-26 21:18] VITALS: BP 155/63
[2021-01-27 01:46] VITALS: BP 165/50
[2021-01-27 06:13] LABS: EOSINOPHILS 5.7 % (0-7); HEMATOCRIT 28.6 % (42.0-54.0); HEMOGLOBIN 9.5 g/dL (13.5-17.5); MCH 28.4 pg (26.0-34.0); MCHC 33.4 g/dL (31.0-37.0); MCV 85.1 fL (80.0-100.0); MEAN PLATELET VOLUME 8.5 fL (7.4-10.4); MONOCYTES 7.9 % (2-11); NEUTROPHILS 68.4 % (40-80); PLATELET COUNT 252 10x3/uL (130-400); RBC 3.36 10x6/uL (4.20-6.10); RDW 15.2 % (11.5-14.5); WBC 7.3 10x3/uL (4.8-10.8)
[2021-01-27 06:20] VITALS: BP 135/55
[2021-01-27 06:52] LABS: ALBUMIN 2.1 g/dL (3.4-5.0); BILIRUBIN - TOTAL 0.34 mg/dL (0.2-1.3); CALCIUM 7.8 mg/dL (8.5-10.1); CARBON DIOXIDE 25.4 mmol/L (21.0-32.0); CREATININE - SERUM 6.6 mg/dL (0.6-1.3); MAGNESIUM - SERUM 2.5 mg/dL (1.8-2.4); PROTEIN - SERUM 5.2 g/dL (6.4-8.2)
[2021-01-27 06:57] LABS: ANION GAP 16.9 mmol/L (8-16); POTASSIUM - SERUM 4.3 mmol/L (3.5-5.1)
[2021-01-27 07:48] VITALS: BP 141/50
[2021-01-27 10:50] VITALS: BP 138/48
[2021-01-27 16:02] VITALS: BP 130/42
--- NOTE | 2021-01-27 16:31 | MORECARE ---
CASE MANAGEMENT DISCHARGE SUMMARY PATIENT: KATE NANCE UNIT: [id number] ADM DATE: 01/22/21 AGE: 85 : 36 SEX: M ROOM/BED: D.1276 AUTHOR: JAYY,DOC PHYSICIAN: REFERRING PHYSICIAN: SNEHA PERSAUD MD DATE OF SERVICE: 01/27/21 Case Management Discharge Planning Summary COMMENTS ENTERED DATE: 01/27/21 16:28 CT COMMENT TYPE: Discharge Planning REVIEWER: Iftikhar Dave Spoke with Saniya of [facility]. Saniya stated that patient's is still unsure about Hospice and would like to think about it overnight. Saniya will re-eval clinical documentation for inpatient hospice this evening and follow up with patient tomorrow. CM will continue to follow and will assist as needed with dc plans/needs ENTERED DATE: 01/26/21 17:07 CT COMMENT TYPE: Discharge Planning REVIEWER: Iftikhar Dave Received Hospice Consult. Spoke with patient's spouse, Moni Nance. Moni would like to speak to [facility] inpatient hospice nurse regarding types of care and what to expect from hospice. Clinical Documents faxed to [facility]. Spoke with Saniya of Hospice. Referral placed and contact information of patient's spouse given to Hospice nurse. JAMES for [facility] telephonically signed for patient's spouse, Moni Nance at 1642 26 JANUARY 2021. CM will continue to follow and will assist as needed with dc plans/needs DCP REVIEW SUMMARY ANTICIPATED D/C DATE: EXPECTED LOS : CASE STATUS: DCP Initiated INITIAL REVIEW: 01/22/2021 INITIAL REVIEWER: Iftikhar Dave FINAL DISCHARGE DISPOSITION: : FINAL REVIEWER: FINAL REVIEW DATE: DCP Focus Questions & Answers QUESTION: ANSWER : PATIENT: KATE NANCE ENCOUNTER: [id number] MEDICAL RECORD#: [id number] ADMISSION DATE: 01/22/2021 DISCHARGE DATE: ATTENDING MD: CORI PERSAUD : AGE: 85 MARITAL STATUS: M DC PLAN ID: [id number] FACILITY: [facility] PRINTED ON: 01/27/21 16:31 CT All edits/amendments must be made on the electronic document DICTATION DATE: 01/27/21 163 GRIPS: ANASTASIA 01/27/211630 RPT#: [id number] DC DATE: STATUS: ADM IN [facility] [address] [place] [address] END OF REPORT
--- NOTE | 2021-01-27 20:00 | NUR ---
PATIENT RESTING IN BED WITH NO S/S OF DISTRESS AND DENIES NEEDS AT THIS TIME. BED IN LOWEST POSITION AND CALL LIGHT IN REACH. ENCOURAGED PATIENT TO CALL WITH NEEDS.
[2021-01-27 21:00] VITALS: BP 152/46
--- NOTE | 2021-01-27 22:15 | NUR ---
ADMINISTERED MEDS PER ORDERS. PATIENT MIK WELL. ENCOURAGED PATIENT TO CALL WITH NEEDS.
[2021-01-28 01:38] VITALS: BP 140/51
[2021-01-28 06:17] VITALS: BP 137/52
--- NOTE | 2021-01-28 07:37 | NUR ---
AM ROUNDING DONE WITH PATIENT CODE STATUS OF DNR. ON 2 1/2 L PER NS. LAYING ON BACK, IN REPORT PAITNET IS MAX ASSIST TO CHAIR OR SIDE OF BED. ON EP. LABS NOT BACK YET. BILATERAL SCD ON AND IN USE. ON HEART MONITOR DR. BRUCE CATH PATENT WITH YELLOW URINE. EXCORATION SEEN TO BOTTOM, CALMOSEPTINE APPLIED. CALL LIGHT IN USE.
[2021-01-28 07:45] VITALS: BP 132/52
[2021-01-28 08:17] LABS: BASOPHILS 2.1 % (0-2); EOSINOPHILS 4.1 % (0-7); HEMATOCRIT 31.5 % (42.0-54.0); HEMOGLOBIN 10.4 g/dL (13.5-17.5); LYMPHOCYTES 14.4 % (15-50); MCH 28.3 pg (26.0-34.0); MCHC 32.9 g/dL (31.0-37.0); MCV 85.8 fL (80.0-100.0); MEAN PLATELET VOLUME 8.4 fL (7.4-10.4); MONOCYTES 7.3 % (2-11); NEUTROPHILS 72.1 % (40-80); PLATELET COUNT 260 10x3/uL (130-400); RBC 3.67 10x6/uL (4.20-6.10); RDW 15.6 % (11.5-14.5); WBC 7.1 10x3/uL (4.8-10.8)
[2021-01-28 08:18] LABS: ALBUMIN 2.1 g/dL (3.4-5.0); ANION GAP 16.5 mmol/L (8-16); BILIRUBIN - TOTAL 0.41 mg/dL (0.2-1.3); CALCIUM 8.5 mg/dL (8.5-10.1); CARBON DIOXIDE 23.7 mmol/L (21.0-32.0); CREATININE - SERUM 6.6 mg/dL (0.6-1.3); MAGNESIUM - SERUM 2.6 mg/dL (1.8-2.4); POTASSIUM - SERUM 4.2 mmol/L (3.5-5.1); PROTEIN - SERUM 5.8 g/dL (6.4-8.2)
[2021-01-28 11:00] VITALS: BP 158/54
--- NOTE | 2021-01-28 11:13 | NUR ---
Nutrition Follow-up: Pt DNR/comfort care. Poor PO intake. 0% eaten this AM. Diet: Diabetic, Chopped Wt: 170# (01/22) Labs noted: BUN 91, Cre 6.6, GFR 9, Glu 102, Mg 2.6, Alb 2.1 Meds noted: Florajen, Protonix, Miralax, Humulin, NS @ 50 -[place] food preferences within diet restrictions. -RD will follow up within 3-4 days.
[2021-01-28 15:55] VITALS: BP 139/52
[2021-01-28 19:33] VITALS: BP 90/54
[2021-01-29] VITALS: BP 135/60
--- NOTE | 2021-01-29 01:19 | NUR ---
I have reviewed this patient and I concur with the Shift Assessment completed by the Licensed Practical Nurse today this shift.
--- NOTE | 2021-01-29 02:26 | NUR ---
RESTING WITH EYES CLOSED, NO S/S DISTRESS NOTED.
[2021-01-29 04:00] VITALS: BP 104/50
[2021-01-29 05:57] LABS: BASOPHILS 1.2 % (0-2); EOSINOPHILS 2.2 % (0-7); HEMATOCRIT 29.7 % (42.0-54.0); LYMPHOCYTES 8.4 % (15-50); MCH 28.4 pg (26.0-34.0); MCHC 33.6 g/dL (31.0-37.0); MCV 84.6 fL (80.0-100.0); MEAN PLATELET VOLUME 8.2 fL (7.4-10.4); MONOCYTES 7.3 % (2-11); NEUTROPHILS 80.9 % (40-80); PLATELET COUNT 254 10x3/uL (130-400); RBC 3.51 10x6/uL (4.20-6.10); RDW 15.6 % (11.5-14.5); WBC 8.4 10x3/uL (4.8-10.8)
[2021-01-29 06:11] LABS: ALBUMIN 2.1 g/dL (3.4-5.0); BILIRUBIN - TOTAL 0.31 mg/dL (0.2-1.3); CALCIUM 8.2 mg/dL (8.5-10.1); CARBON DIOXIDE 25.8 mmol/L (21.0-32.0); CREATININE - SERUM 6.9 mg/dL (0.6-1.3); MAGNESIUM - SERUM 2.7 mg/dL (1.8-2.4); POTASSIUM - SERUM 3.8 mmol/L (3.5-5.1); PROTEIN - SERUM 5.8 g/dL (6.4-8.2)
--- NOTE | 2021-01-29 07:30 | NUR ---
AM ROUNDING DONE WITH PATIENT HOB AT 30 DEGREES. ON HEART MONITOR SHOWING SR, DNR CODE STATUS. BRUCE CATH PATENT WITH CLEAR YELLOW URINE. ON 2.5 L PER NC. SCD'S ON AND IN USE. LEFT FA PIV SEEN WITH NS INFUSING AT 10 CC/HR. CALL LIGHT IS IN UE.
[2021-01-29 09:22] VITALS: BP 132/59
[2021-01-29 12:19] VITALS: BP 152/56
--- NOTE | 2021-01-29 14:19 | MORECARE ---
CASE MANAGEMENT DISCHARGE SUMMARY PATIENT: KATE NANCE UNIT: [id number] ADM DATE: 01/22/21 AGE: 85 : 36 SEX: M ROOM/BED: D.0536 AUTHOR: JAYY,EDITH PHYSICIAN: REFERRING PHYSICIAN: SNEHA PERSAUD MD DATE OF SERVICE: 01/29/21 Case Management Discharge Planning Summary COMMENTS ENTERED DATE: 01/29/21 14:07 CT COMMENT TYPE: Discharge Planning REVIEWER: Iliana Sury Contacted Moni to determine if she had made a decision and was told that she was waiting for the hospice nurse to call her and answer some questions. [facility] contacted and spoke with Murtaza who states he will call patient today. If a decision is reached for hospice he will coordinate a inpatient evaluation to be done today. Will follow up once criteria is met. ENTERED DATE: 01/27/21 16:28 CT COMMENT TYPE: Discharge Planning REVIEWER: Iftikhar Dave Spoke with Saniya of [facility]. Saniya stated that patient's is still unsure about Hospice and would like to think about it overnight. Saniya will re-eval clinical documentation for inpatient hospice this evening and follow up with patient tomorrow. CM will continue to follow and will assist as needed with dc plans/needs ENTERED DATE: 01/26/21 17:07 CT COMMENT TYPE: Discharge Planning REVIEWER: Iftikhar Dave Received Hospice Consult. Spoke with patient's spouse, Moni Nance. Moni would like to speak to [facility] inpatient hospice nurse regarding types of care and what to expect from hospice. Clinical Documents faxed to [facility]. Spoke with Saniya of Hospice. Referral placed and contact information of patient's spouse given to Hospice nurse. JAMES for [facility] telephonically signed for patient's spouse, Moni Nance at 1642 26 JANUARY 2021. CM will continue to follow and will assist as needed with dc plans/needs DCP REVIEW SUMMARY ANTICIPATED D/C DATE: EXPECTED LOS : CASE STATUS: DCP Initiated INITIAL REVIEW: 01/22/2021 INITIAL REVIEWER: Iftikhar Dave FINAL DISCHARGE DISPOSITION: : FINAL REVIEWER: FINAL REVIEW DATE: DCP Focus Questions & Answers QUESTION: ANSWER : PATIENT: KATE NANCE ENCOUNTER: [id number] MEDICAL RECORD#: [id number] ADMISSION DATE: 01/22/2021 DISCHARGE DATE: ATTENDING MD: CORI PERSAUD : AGE: 85 MARITAL STATUS: M DC PLAN ID: [id number] FACILITY: [facility] PRINTED ON: 01/29/21 14:19 CT All edits/amendments must be made on the electronic document DICTATION DATE: 01/29/211418 SEARCH CONSULTANT: ANASTASIA 01/29/21 141 RPT#: [id number] DC DATE: STATUS: ADM IN [facility] [address] [place] [address] END OF REPORT
[2021-01-29 16:41] VITALS: BP 153/88
--- NOTE | 2021-01-29 19:54 | MORECARE ---
CASE MANAGEMENT DISCHARGE SUMMARY PATIENT: KATE NANCE UNIT: [id number] ADM DATE: 01/22/21 AGE: 85 : 36 SEX: M ROOM/BED: D.2746 AUTHOR: JAYY,EDITH PHYSICIAN: REFERRING PHYSICIAN: SNEHA PERSAUD MD DATE OF SERVICE: 01/29/21 Case Management Discharge Planning Summary COMMENTS ENTERED DATE: 01/29/21 14:07 CT COMMENT TYPE: Discharge Planning REVIEWER: Iliana Sury Contacted Moni to determine if she had made a decision and was told that she was waiting for the hospice nurse to call her and answer some questions. [facility] contacted and spoke with Murtaza who states he will call patient today. If a decision is reached for hospice he will coordinate a inpatient evaluation to be done today. Will follow up once criteria is met. ENTERED DATE: 01/27/21 16:28 CT COMMENT TYPE: Discharge Planning REVIEWER: Iftikhar Dave Spoke with Saniya of [facility]. Saniya stated that patient's is still unsure about Hospice and would like to think about it overnight. Saniya will re-eval clinical documentation for inpatient hospice this evening and follow up with patient tomorrow. CM will continue to follow and will assist as needed with dc plans/needs ENTERED DATE: 01/26/21 17:07 CT COMMENT TYPE: Discharge Planning REVIEWER: Iftikhar Dave Received Hospice Consult. Spoke with patient's spouse, Moni Nance. Moni would like to speak to [facility] inpatient hospice nurse regarding types of care and what to expect from hospice. Clinical Documents faxed to [facility]. Spoke with Saniya of Hospice. Referral placed and contact information of patient's spouse given to Hospice nurse. JAMES for [facility] telephonically signed for patient's spouse, Moni Nance at 1642 26 JANUARY 2021. CM will continue to follow and will assist as needed with dc plans/needs DCP REVIEW SUMMARY ANTICIPATED D/C DATE: EXPECTED LOS : CASE STATUS: DCP Initiated INITIAL REVIEW: 01/22/2021 INITIAL REVIEWER: Iftikhar Dave FINAL DISCHARGE DISPOSITION: : FINAL REVIEWER: FINAL REVIEW DATE: DCP Focus Questions & Answers QUESTION: ANSWER : PATIENT: KATE NANCE ENCOUNTER: [id number] MEDICAL RECORD#: [id number] ADMISSION DATE: 01/22/2021 DISCHARGE DATE: 01/29/2021 ATTENDING MD: CORI PERSAUD : AGE: 85 MARITAL STATUS: M DC PLAN ID: [id number] FACILITY: [facility] PRINTED ON: 01/29/21 19:54 CT All edits/amendments must be made on the electronic document DICTATION DATE: 01/29/211953 CANDLEMAKING LABORER: ANASTASIA 01/29/211953 RPT#: [id number] DC DATE:01/29/21 STATUS: DIS IN [facility] [address] [place] [address] END OF REPORT
--- NOTE | 2021-01-30 13:10 | MORECARE ---
CASE MANAGEMENT DISCHARGE SUMMARY PATIENT: KATE NANCE UNIT: [id number] ADM DATE: 01/22/21 AGE: 85 : 36 SEX: M ROOM/BED: D.1206 AUTHOR: JAYY,EDITH PHYSICIAN: REFERRING PHYSICIAN: SNEHA PERSAUD MD DATE OF SERVICE: 01/30/21 Case Management Discharge Planning Summary COMMENTS ENTERED DATE: 01/29/21 14:07 CT COMMENT TYPE: Discharge Planning REVIEWER: Iliana Sury Contacted Moni to determine if she had made a decision and was told that she was waiting for the hospice nurse to call her and answer some questions. [facility] contacted and spoke with Murtaza who states he will call patient today. If a decision is reached for hospice he will coordinate a inpatient evaluation to be done today. Will follow up once criteria is met. ENTERED DATE: 01/27/21 16:28 CT COMMENT TYPE: Discharge Planning REVIEWER: Iftikhar Dave Spoke with Saniya of [facility]. Saniya stated that patient's is still unsure about Hospice and would like to think about it overnight. Saniya will re-eval clinical documentation for inpatient hospice this evening and follow up with patient tomorrow. CM will continue to follow and will assist as needed with dc plans/needs ENTERED DATE: 01/26/21 17:07 CT COMMENT TYPE: Discharge Planning REVIEWER: Iftikhar Dave Received Hospice Consult. Spoke with patient's spouse, Moni Nance. Moni would like to speak to [facility] inpatient hospice nurse regarding types of care and what to expect from hospice. Clinical Documents faxed to [facility]. Spoke with Saniya of Hospice. Referral placed and contact information of patient's spouse given to Hospice nurse. JAMES for [facility] telephonically signed for patient's spouse, Moni Nance at 1642 26 JANUARY 2021. CM will continue to follow and will assist as needed with dc plans/needs DCP REVIEW SUMMARY ANTICIPATED D/C DATE: 01/29/2021 EXPECTED LOS : 7 CASE STATUS: DCP Complete INITIAL REVIEW: 01/22/2021 INITIAL REVIEWER: Iftikhar Dave FINAL DISCHARGE DISPOSITION: 02 : Discharged/Transferred to Short-term [facility] FINAL REVIEWER: FINAL REVIEW DATE: DCP Focus Questions & Answers QUESTION: ANSWER : PATIENT: KATE NANCE ENCOUNTER: [id number] MEDICAL RECORD#: [id number] ADMISSION DATE: 01/22/2021 DISCHARGE DATE: 01/29/2021 ATTENDING MD: CORI PERSAUD : AGE: 85 MARITAL STATUS: M DC PLAN ID: [id number] FACILITY: [facility] PRINTED ON: 01/30/21 13:09 CT All edits/amendments must be made on the electronic document DICTATION DATE: 01/30/21 1309 ADULT EDUCATION INSTRUCTOR: ANASTASIA 01/30/21 1309 RPT#: [id number] DC DATE:01/29/21 STATUS: DIS IN [facility] [address] [place] [address] END OF REPORT
== END 2021-01-29 19:51 | disposition hospice, inpatient (51) | DRG 377 ==
LOC: D.ER 10:41 → D.M2 13:54 → D.EDHOLD 13:54 → D.M2 16:11
PROVIDERS: Emergency Medicine; Family Medicine; Internal Medicine; ADMIT Family Medicine; ATTEND Family Medicine
DX: K92.2 Gastrointestinal hemorrhage, unspecified (principal); J18.9 Pneumonia, unspecified organism; I21.A1 Myocardial infarction type 2; G93.41 Metabolic encephalopathy; J96.01 Acute respiratory failure with hypoxia; I50.31 Acute diastolic (congestive) heart failure; N17.9 Acute kidney failure, unspecified; I13.0 Hypertensive heart and chronic kidney disease with heart failure and stage 1 through stage 4 chronic kidney disease, or unspecified chronic kidney disease; D62 Acute posthemorrhagic anemia; E11.22 Type 2 diabetes mellitus with diabetic chronic kidney disease; N18.9 Chronic kidney disease, unspecified; F03.90 Unspecified dementia, unspecified severity, without behavioral disturbance, psychotic disturbance, mood disturbance, and anxiety; Z66 Do not resuscitate; E87.6 Hypokalemia; E83.42 Hypomagnesemia; I48.0 Paroxysmal atrial fibrillation; Z86.73 Personal history of transient ischemic attack (TIA), and cerebral infarction without residual deficits; E78.5 Hyperlipidemia, unspecified; N40.0 Benign prostatic hyperplasia without lower urinary tract symptoms